=== PATIENT | female | born 1980 | race Hispanic/Latino ===

== ENCOUNTER 2017-02-26 17:30 | Inpatient (IN) | payer MEDICAID ==
[~2017-02-26] VITALS: Ht 158.8 cm; Wt 81.6 kg
[2017-02-26] MEDS ORDERED: Sodium Chloride LOK Flush 10 mL Syringe IVFLUSH PRN (21:20)
[2017-02-26] MEDS ORDERED: Oxytocin 10 Unit/mL Inj IM PRN (21:20)
[2017-02-26] MEDS ORDERED: Oxytocin 30 Units/500 mL LR 30 UNITS in IV Premix 1 EACH IV PRN (21:20)
[2017-02-26] MEDS ORDERED: Carboprost 250 mCg/mL Inj IM PRN (21:20)
[2017-02-26] MEDS ORDERED: Methylergonovine 0.2 mg/mL Inj IM PRN (21:20)
[2017-02-26] MEDS ORDERED: Hemorrhage Kit, Post Partum XX ONE (21:20)
[2017-02-26] MEDS ORDERED: CeFAZolin Inj 2 GM in Dextrose 5%-Pha MIX 50 ML IV ONE (21:35)
[2017-02-26] MEDS: Lactated Ringer's 1,000 ML IV PRN ×2 (21:50→22:53)
--- NOTE | 2017-02-26 21:59 | DRSVH ---
PROCEDURE: US OB FOLLOW UP GROWTH AND BIOPHYSICAL PROFILE AND UMBILICAL DOPPPLER INDICATIONS: IUGR, CORD DOP, WEIGHT OUTSIDE/PRIOR DATING DATA: Last menstrual period (LMP): Not available. LMP-based estimated date of delivery (SHE): None available. First dating scan (date and location): 10/13/2016, at [facility]. Estimated date of delivery (SHE) from first dating scan: 03/16/2017. TECHNIQUE: Real-time scanning was performed of the fetus, with image documentation and biometric measurements. Endovaginal scanning: n.a. COMPARISON: [facility], US, US OB FOLLOW UP GROWTH, 02/11/2017, 10:42. [facility]TagArray Ultrasound, US, US OB REEVAL INCOMP ANATMY LTD, 11/15/2016, 16:17. [facility] Ul trasound, US, US OB>14 WKS ANATOMY COMP, 10/21/2016, 16:36. FINDINGS: General: A single living intrauterine gestation is present. Presentation: Breech Placenta: Placental position is anterior fundal, without previa. Amniotic fluid index: 4.6 cm (less than 3%); normal range is 5-24 cm. heart rate: 156 beats per minute. Maternal cervical canal: 3.6 cm long. Normal lower limit is 2.5 cm. biometrics: Biparietal diameter: 35 weeks 3 days Head circumference: 35 weeks 2 days Abdominal circumference: 35 weeks 1 day Femur length: 35 weeks 5 days Estimated gestational age from initial scan: 35 weeks 3 days. Composite gestational age from present scan: 35 weeks 2 days Estimated weight and percentile: 2541 at 7% Measurement variability for biometric dating: +/- 10 days from 12-20 weeks gestation, +/- 2 weeks fro m 20-30 weeks gestation, +/- 3 weeks for 30 weeks gestation or later. weight reference: 4500 g or EFW >90/95% is considered macrosomia or large for gestational age. EFW <10% is small for gestational age. EFW 5% or less is considered intra-uterine growth restrictio n. Anatomic survey: Neuro: Ventricles are non-dilated at less than 10 mm. Cisterna magna is normal at 3-11 mm. Cerebel lum is normal in size and morphology. Nuchal skin fold: Normal at less than 6 mm between 14-20 weeks gestational age. Face: Nose and lips, facial profile are normal. Spine: No evidence for spina bifida. Heart: 4-chambered heart is present, with normal ventricular outflow tracts. Diaphragm: Diaphragm is intact. Stomach: Left-sided stomach is present. Kidneys: No hydronephrosis. Normal is less than 5 mm in 2nd trimester, less than 7 mm in 3rd trimester. Cord: 3 vessel cord has orthotopic insertion. Bladder: Normal in size. Extremities: All 4 extremities identified. Biophysical profile: Tone: 0 points. Movement: 2 points. Respiration: 2 points. Largest pocket of fluid: 2 points. Umbilical artery Doppler: Normal with preserved diastolic flow IMPRESSION: 1. A single living intrauterine gestation. 2. The weight at the 7th percentile for gestational age. 3. Oligohydramnios with RAJI at less than 3%. 4. BPD 05/01. Dictated by: Gayla Wild M.D. on 02/26/2017 at 21:51 Approved by: Gayla iWld M.D. on 02/26/2017 at 21:57
--- NOTE | 2017-02-26 22:33 | HP ---
[address] [address] HISTORY AND PHYSICAL PATIENT: ODELL CARO : 1980 MR#: [id number] ADMIT: 02/26/2017 JOB ID: [id number] HISTORY OF PRESENT ILLNESS: This is a 36-year-old female. She is 5, para 4, at 37 weeks plus 5 days. She was sent to [facility] by Dr. Green for NST because she had an ultrasound done February 11 that showed her estimated weight was 2%. The NST was done at [facility] and her tracing showed a nonreactive heart tracing. The heart baseline at 150 with most of the time with moderate variability, but no adequate accelerations. Then, BPP and Doppler ultrasound was ordered. This time, the estimated weight was 7% and the RAJI was 4.7 with 2.2 pocket. There was a -2 score with not seeing gross movement. There was breathing movement present. The score for BPP was 6/10 minus NST and gross movement and the Doppler was within normal range. ALLERGIES: This patient has no known drug allergies. PAST MEDICAL HISTORY: She declined other medical problems. She declined a history of surgery. She has been having routine care at [facility] for . It was noticed her GCT was positive at 149 and 3-hour GTT was negative, and there were no other abnormal findings in before the ultrasound noticed IUGR. OBSTETRICAL HISTORY: She had four vaginal deliveries, not complicated. GYNECOLOGIC HISTORY: Not significant. SOCIAL HISTORY: She declined smoking, drinking alcohol or drug usage. FAMILY HISTORY: Not significant. PHYSICAL EXAMINATION: She is afebrile. Her vitals are in normal range. Cardiac: RR, no murmur. Pulmonary: Bilaterally clear. Abdomen: Soft, , nontender uterus. Extremities: Nontender. ASSESSMENT AND PLAN: This is a 36-year-old female, 5, para 4 at 37 weeks plus 5 days. Intrauterine growth retardation at 2% February 21 and 7% today. BPP 6/10 with nonreactive heart tracing but category 1 at this time and breech presentation confirmed by the ultrasound today. Discussed with the patient that at this time she has a breech presentation and IUGR. The plan will be for section. The patient drank fluid at around 7-7:30. Plan is we will keep her heart tracing monitor on overnight. Will get a done in the morning. I also discussed with Dr. Green and she will be present in the morning and be the surgeon for the . The is scheduled at 8:30. I also talked with the patient that if there is heart tracing abnormality overnight, she will need a earlier than 8:00. All questions answered. The patient agreed with the plan. HARRIETT
[2017-02-26 22:58] LABS: Mean Corpuscular Hemoglobin 30.8 pg (27.0-35.0); Mean Corpuscular Volume 87.9 fL (81-100)
[2017-02-27] MEDS ORDERED: Sodium Citrate-Citric Acid 15 mL Solution PO ONE ×2 (06:20→07:25)
[2017-02-27] MEDS ORDERED: fentaNYL-PF 50 mCg/mL 2 mL Inj ONE (08:18)
[2017-02-27] MEDS ORDERED: Morphine PF 1 mg/mL 10 mL Inj ONE (08:19)
--- NOTE | 2017-02-27 09:23 | HP ---
[address] [address] HISTORY AND PHYSICAL PATIENT: ODELL CARO : 1980 MR#: [id number] ADMIT: 02/26/2017 JOB ID: [id number] ADMISSION DIAGNOSIS: IUGR with oligo at term. HISTORY OF PRESENT ILLNESS: The patient is a 36-year-old 5, para 4-0-0-4 at 37 weeks and 6 days gestational age by eight week ultrasound, who was sent from the office yesterday for ultrasound on February 11, 2017 that showed IUGR at 2nd percentile. The patient was sent for surveillance. NST was unreactive. Biophysical profile was ordered. Results were 6/, -2 for nonreactive NST and -2 for tone. RAJI was 4.6 cm and follow up growth showed IUGR 7th percentile, baby's weight was 2541 g, average gestation age 35 weeks and 2 days, a breech presentation and decision was made to proceed with delivery by section for breech presentation. PAST MEDICAL HISTORY: 1. Mild headaches resolved with Tylenol only. 2. Abnormal 1 hour glucose tolerance test with normal 3 hour GTT. PAST SURGICAL HISTORY: Insignificant. OBSTETRICAL HISTORY: In 1999, 40 week ended with spontaneous vaginal delivery in [place]. In 2002, 40 week ended with spontaneous vaginal delivery in [place]. In 2010, a full-term ended with spontaneous vaginal delivery in [place], no complications. In 2012, 40 weeks ended with spontaneous vaginal delivery after induction of labor for oligohydramnios and the current . PAST GYNECOLOGIC HISTORY: No history of abnormal Pap smears. No history of STDs. ALLERGIES: No known drug allergies. MEDICATIONS: vitamins. SOCIAL HISTORY: Denied any alcohol consumption. Denied any drugs of abuse. Denied any cigarette smoking. LABORATORIES: H and H is 11.9 and 35.1. HIV nonreactive. Gonorrhea/ chlamydia cultures negative. Antibody negative. Blood group O positive, hepatitis B surface antigen nonreactive, RPR nonreactive, rubella immune. Urine cultures negative. PHYSICAL EXAMINATION: The patient is alert, oriented x3. Vital signs are 95/55 for blood pressure. Respirations are 18, pulse 76, temperature 36.9 degrees centigrade. Heart is regular rate and rhythm. Positive S1, S2. Lungs clear to auscultation bilaterally. Abdomen: Gravid uterus. Lower extremities without calf tenderness appreciated bilaterally. heart tracing is showing baseline of 145 beats per minute. No accelerations, moderate variability. One variable deceleration, a brian of 115 lasted only 15 seconds at 7:50 a.m. after acoustic stimulation. A second acoustic stimulation did not elicit any accelerations as well. Ultrasound from last night showed estimated weight 2541 g at 7th percentile, average gestational age of 35 weeks and 2 days, breech presentation, RAJI of 4.6 cm and a biophysical profile is 6/10, -2 for nonreactive NST, and -2 for tone. Bedside ultrasound before proceeding with a confirmed breech presentation as well. ASSESSMENT AND PLAN: The patient is a 36-year-old, 5, para 4-0-0-4 at 37 weeks 6 days gestational age by eight week ultrasound, with IUGR 7th percentile, RAJI of 4.6 cm, oligohydramnios, biophysical profile 6/10 and breech presentation. Decision was made to proceed with a primary after consulting with Dr. aLke through [employer]. Patient counseled in details; she agreed to proceed with the plan. 1- Will proceed with a primary , a consent signed. All questions answered. 2- Preoperative antibiotic prophylaxis. 3- SCDs for DVT prophylaxis. All questions answered. HARRIETT
--- NOTE | 2017-02-27 11:30 | PCM.HPANE ---
Patient Data Date of Service: Feb 27, 2017 Surgeon Admitting Provider:Odell Green MD Attending Provider:Odell Green MD Primary Care Physician:Helio Bacon MD Other Provider:Ronnie Steward Anesthesia Reason for Visit NST LABOR Ht/WT & BMI Body Mass Index Allergies Coded Allergies: No Known Allergies (Unverified Allergy, Unknown, 02/26/17) Diabetes History Hx Diabetes?: No MRSA MRSA: No Medications Hypertension Medication: No History History of ENT Problems?: No Hx of Heart Problems?: No Hx of Respiratory Problem?: No Hx Neurologic Problems?: No Hx of GI Problems?: No Hx of Problems?: No HX of Peritoneal Dialysis: No Hx Surgeries?: No Hx Substance Use: No Smoking Status: Never Smoker Have You Smoked inLast 12 mo: No Stop/Bang Treated for Sleep Apnea?: No Do You Have a CPAP Machine?: No S-Snoring: Do You Snore Loudly: No T-Tired: feel tired, fatigued: No O-Obsered: Observed not breath: No P-Blood Pressure: treated: No WINSTON Risk Assessment: Low Risk, <3 Yes Risk Assessment Category Category 1A: Patient has history of documented sleep apnea, and HAS NOT received any narcotic, sedative or anesthesia administration during this stay. Category 1B: Patient has history of documented sleep apnea, and HAS received any narcotic , sedative or anesthesia administration during this stay Category 2: Patient has SUSPECTED Obstructive Sleep Apnea, and HAS received any narcotic , sedative or anesthesia administration during this stay. Category 3: Patient has SUSPECTED Obstructive Sleep Apnea and HAS NOT received narcotic, sedative or anesthesia administration during this stay. Category 4: Outpatient in Procedural Areas with known sleep apnea or who screen positive for High Risk via the STOP/BANG questionnaire. Exam Exam General Appearance: Alert, Oriented X3, Cooperative, No Acute Distress HEENT/AIRWAY: MP 3 Lungs: Clear to Auscultation, Normal Air Movement Heart: Exam Unremarkable, Regular Rate/Rhythm, No Murmurs/Rubs/Gallops Additional Information Gravid Abdomen Meds/Labs/Diagnostics Admission Meds Current Medications Cefazolin Sodium/ Dextrose/Water (Ancef Inj/D5W Pharmacy To Mix) 50 ml @ 100 mls/hr ONCE ONCE IV Last administered on 02/27/17t 08:17; Start 02/26/17 at 21: 35; Stop 02/26/17 at 22:04; Status DC Citric Acid/ Sodium Citrate (Bicitra) 30 ml ONCE ONCE PO Last administered on 02/27/17t 08:17; Start 02/27/17 at 06:20; Stop 02/27/17 at 06:28; Status DC Labs Test 02/26/17 21:35 White Blood Count 12.3th/mm3 (3.8-10.1) Red Blood Count 4.71mil/mm3 (3.90-5.20) Hemoglobin 14.5g/dL (12.0-15.6) Hematocrit 41.4% (35.0-46.0) Mean Corpuscular Volume 87.9fL (81-100) Mean Corpuscular Hemoglobin 30.8pg (27.0-35.0) Mean Corpuscular Hemoglobin Concent 35.0% (32.0-37.0) Red Cell Distribution Width 11.6% (12.3-15.4) Platelet Count 245bil/L (150-400) Plan Impression Patient chart reviewed, patient interviewed and anesthestic plan with risks, benefits, and alternatives discussed, and informed consent obtained. ASA Physical Status: ASA2 Plus Emergency (nonreassuring FHT, Oliohydramnios, IUGR) Anesthetic Plan: SAB Bene/Risks/Altern/Consents: Yes HP Complete Prior to Induction: No (Notified of C/S need prior to opportunity to chart H&P documentaiton added following urgent patient care.) Alejandro Morales DO Feb 27, 2017 11:30
[2017-02-27] MEDS ORDERED: Lactated Ringer's 1,000 ML IV PRN (11:31)
[2017-02-27] MEDS ORDERED: fentaNYL-PF 50 mCg/mL 2 mL Inj IVPUSH PRN (11:35)
[2017-02-27] MEDS ORDERED: Dexamethasone 4 mg/mL Inj IVPUSH PRN (11:35)
[2017-02-27] MEDS ORDERED: EPHEDrine Sulfate 50 mg/mL Inj IVPUSH PRN (11:35)
[2017-02-27] MEDS ORDERED: Atropine 0.4 mg/mL Inj IV PRN (11:35)
[2017-02-27] MEDS ORDERED: Ondansetron 2 mg/mL 2 mL Inj IVPUSH PRN (11:35)
--- NOTE | 2017-02-27 11:40 | PCM.ANEP1 ---
Post Anesthesia Phase 1 PACU Phase 1 Assessment Date of Service: Feb 27, 2017 Anesthetic Administered: SAB Level of Alertness: Awake, talking GREER's with Equal Strength: No (c/w sensorimotor block) Pain: No Pain Scale Score: 0 Nausea or Vomiting: No Oxygen Delivery: Room Air Lungs: Clear to Auscultation, Normal Air Movement Dermatome Level: T10 (Umbilicus) Alejandro Morales DO Feb 27, 2017 11:40
--- NOTE | 2017-02-27 11:59 | PCM.ANEP2 ---
Post Anesthesia Evaluation ASA/CMS Post Anesthesia VS in Patient's Normal Range?: No (Addressing with 25mg IM ephedrine) Resp Stable; Airway Patent?: Yes CV Function & Hydration Stable: Yes Mental Status Recovered?: Yes Pain control Satisfactory?: Yes N/V Control Satisfactory?: Yes Alejandro Morales DO Feb 27, 2017 11:59
[2017-02-27] MEDS ORDERED: EPHEDrine Sulfate 50 mg/mL Inj IM ONE (12:00)
[2017-02-27] MEDS: Lactated Ringer's 1,000 ML IV SCH ×2 (12:11→20:11)
[2017-02-27] MEDS ORDERED: Oxytocin 30 Units/500 mL LR 30 UNITS in IV Premix 1 EACH IV PRN (12:15)
[2017-02-27] MEDS ORDERED: Carboprost 250 mCg/mL Inj IM PRN (12:15)
[2017-02-27] MEDS ORDERED: oxyCODONE-Acetamin 5-325 mg Tablet PO PRN (12:15)
[2017-02-27] MEDS ORDERED: Methylergonovine 0.2 mg/mL Inj IM PRN (12:15)
[2017-02-27] MEDS ORDERED: Hemorrhage Kit, Post Partum XX ONE (12:15)
[2017-02-27] MEDS ORDERED: hydrOXYzine Pamoate 25 mg Capsule PO PRN (12:15)
[2017-02-27] MEDS ORDERED: Sodium Chloride LOK Flush 10 mL Syringe IVFLUSH PRN (12:15)
[2017-02-27] MEDS ORDERED: LANOlin HPA 7 Gm Ointment TOPICAL PRN (12:15)
[2017-02-27] MEDS ORDERED: Oxytocin 10 Unit/mL Inj IM PRN (12:15)
--- NOTE | 2017-02-28 01:58 | OP ---
[address] [address] OPERATIVE REPORT PATIENT: ODELL CARO : 1980 MR#: [id number] ADMIT: 02/26/2017 JOB ID: [id number] DATE OF SURGERY: 02/26/2017 PREOPERATIVE DIAGNOSIS(ES): A 36-year-old, 5, para 4-0-0-4 at 37 weeks' 6 days' gestational age with complicated with the followin. Intrauterine growth restriction: Last ultrasound is at 7th percentile yesterday. 2. Biophysical profile: 05/03, -2 for tone, -2 for nonreactive NST. 3. Oligohydramnios with amniotic fluid index (RAJI) of 4.6 cm. 4. Breech presentation. 5. Advanced maternal age. 6. Body mass index 31. The patient opted to proceed with a primary section. POSTOPERATIVE DIAGNOSIS(ES): A 36-year-old, 5, para 4-0-0-4 at 37 weeks' 6 days' gestational age with complicated with the followin. Intrauterine growth restriction: Last ultrasound is at 7th percentile yesterday, but baby's actual weight is less than the 5th percentile. 2. Biophysical profile: 05/03, -2 for tone, -2 for nonreactive NST. 3. Oligohydramnios with amniotic fluid index (RAJI) of 4.6 cm. 4. Breech presentation. 5. Advanced maternal age. 6. Body mass index 31. The patient opted to proceed with a primary section. PROCEDURE: Primary low transverse . SURGEON: Odell Green MD [employer]: ANESTHESIA: Spinal. ESTIMATED BLOOD LOSS: 600 cc. INTRAVENOUS FLUIDS: 900 cc of crystalloid. URINE OUTPUT: 400 cc of clear urine. COMPLICATIONS: None. PACKS: None. DRAINS: None. CATHETERS: Tam catheter in place. SPECIMENS REMOVED: Placenta sent to pathology for IUGR and oligohydramnios. FINDINGS: 1. Polycystic ovaries bilaterally. Normal fallopian tubes bilaterally. 2. Rajan breech presentation in left sacral transverse position. 3. Single viable female with Apgars 8 and 9, weight of 2009 gm, less than the 5th percentile for 37 weeks' gestational age. 4. Delayed cord clamping allowed for 60 seconds. CONSENT: Procedure, risks, benefits, and alternatives of the procedure discussed with the patient. Informed consent signed. PROCEDURE IN DETAIL: Patient went to the OR with IV running. After spinal anesthesia was found to be adequate, the patient was prepped and draped in the normal sterile fashion with vaginal prepping and abdominal prepping as well. Tam catheter inserted. Patient placed in dorsal supine position with a leftward tilt. Pfannenstiel skin incision was made with a scalpel 2 cm above symphysis pubis and carried down to underlying rectus fascia with the scalpel. Fascial incision extended bilaterally with Leyva scissors. Inferior aspect of fascial incision was grasped with Tarun clamps, elevated, tented up, and rectus muscles dissected off bluntly. Attention was then turned to the superior aspect of fascial incision, which in a similar fashion was grasped with Tarun clamps, elevated, tented up. Rectus muscle dissected off bluntly and sharply. Rectus muscles were then in the midline. Peritoneum identified, entered bluntly with traction, counter traction. Upon good visualization of the bladder , peritoneal incision extended superiorly and inferiorly. Bladder blade inserted. Vesico-uterine peritoneum identified, entered sharply with Metzenbaum scissors. Bladder flap created digitally. Bladder blade re-inserted. Uterus incised in the midline with scalpel. Uterine incision extended bilaterally with bandage scissors. membranes ruptured. Rajan breech presentation in left sacral transverse position. Sacrum was delivered through the incision after rupture of membranes with clear fluid obtained. The baby's trunk delivered. With rotational movements, both upper extremities were delivered. Then, the head was delivered smoothly without any maneuvers. Delayed cord clamping allowed for 60 seconds. Cord clamped and cut. Infant handed off to awaiting clinical review nurse. Placenta followed spontaneously. The uterus exteriorized, cleared of all clots and debris. The uterine incision repaired in two layers, first a continuous locked fashion of 0-Vicryl suture, second imbrication layer with 0-Vicryl suture. Good hemostasis was assured. Suction irrigation confirmed hemostasis. Uterus returned back to the abdomen. A few extra [id number] of 2-0 chromic were added to confirm hemostasis at the level of the hysterotomy repair. All instruments were removed from the patient's abdomen. Muscle approximated in the midline with interrupted sutures of 2-0 chromic. Fascia closed in a continuous fashion of 0-Vicryl suture. The skin closed in a subcuticular fashion with 4-0 Vicryl suture. Pressure dressing applied. Patient tolerated the procedure well. Sponge, lap, needle, and instrument counts were correct times two. The patient was recovering in a stable condition. Dr. Green was present and scrubbed for the entire procedure. HARRIETT
[2017-02-28] MEDS: Lactated Ringer's 1,000 ML IV SCH ×3 (04:11→20:11)
[2017-02-28 06:16] LABS: Mean Corpuscular Hemoglobin 31.2 pg (27.0-35.0); Mean Corpuscular Volume 91.1 fL (81-100)
[2017-02-28] MEDS: Ascorbic Acid 500 mg Tablet PO SCH ×2 (08:19→20:23)
--- NOTE | 2017-02-28 08:36 | PCM.PNOBPP ---
Subjective Date of Service Feb 28, 2017 Post : Primary Ceserean Delivery Lochia: Normal Pain Management: PO pain meds Gastrointestinal: Good Appetite, No N/V Postop Activity: Ambulating in Room Only, Other (voiding without difficulty. ) Labs Laboratory Tests 02/28/17 05:45: White Blood Count 8.5, Red Blood Count 3.14, Hemoglobin 9.8, Hematocrit 28.6, Mean Corpuscular Volume 91.1, Mean Corpuscular Hemoglobin 31.2, Mean Corpuscular Hemoglobin Concent 34.3, Red Cell Distribution Width 11.5, Platelet Count 173 Exam Vital Signs Vital Signs BP 78/48 Pulse 87 RR 17 T 36.7 O2Sat 97% on RA Vital Signs: VS reviewed, stable Exam Abdomen: Fundus firm Lungs: Clear to Auscultation Heart: Regular Rate/Rhythm, Normal S1, Normal S2 General: Alert, Oriented X3 Surgical Wound : Incision General Appearence: Steri Strips, Sutures, Intact, Well Approximated, Incision Healing, No Erythemia, No Discharge OB Post Assessment/Plan Assessment A 36-year-old, 5, now para 5-0-0-5 1. POD#1 S/P Primary section for Intrauterine growth restriction, Oligohydramnios and Breech presentation. 2. Postoperative Anemia. 3. Advanced maternal age. 4. Body mass index 31. Post plan: Other (Continue post operative care. Anticipate discharge home tomorrow. ) Helio Bacon MD Feb 28, 2017 08:36
[2017-02-28] MEDS ORDERED: Hepatitis-B (Adult) Vaccine 20 mCg/1 mL Inj IM ONE (13:35)
[2017-03-01] MEDS: Ascorbic Acid 500 mg Tablet PO SCH (07:49)
--- NOTE | 2017-03-01 13:53 | PCM.DIOB ---
Obstetrical Disch Instruction Date of Service: Mar 01, 2017 Dates of Hospitalization Date of Hospital Admission Feb 26, 2017 at 20:50 Providers Admitting Physician: Odell Green MD Primary Care Physician: Helio Bacon MD Attending Physician: Odell Green MD Discharge Diagnosis Discharge Diagnosis POD#2 S/P PLTCS, SGA, anemia Problems: Diet Discharge Diet: No restrictions Activity Discharge Activity-General: Pelvic Rest for 6 weeks, No lifting >10 pounds for 4-6 weeks Dressing and Incisional Care Dressing Care: Keep dressing clean, dry & intact Hygiene: May shower Follow Up Plan Follow-up Provider (F9): Odell Green MD Follow-up appointment: Weeks (2) Call your provider for: Fever or Chills, Shortness of breath, Heavy vaginal bleeding, Other (excessive pain not controlled with pain medications, abnormal wound discharge.) Odell Green MD Mar 01, 2017 13:53
[2017-03-01] MEDS ORDERED: OXYC1TAB24 PO (13:56)
[2017-03-01] MEDS ORDERED: FERR-74 PO (13:56)
[2017-03-01] MEDS ORDERED: Ascorbic Acid PO (13:56)
[2017-03-01] MEDS ORDERED: IBUP-1827 PO (13:56)
[2017-03-01] MEDS ORDERED: DOCU-41 PO (13:56)
[2017-03-01 14:45] VITALS: BP 115/69; PULSE 88; RESP 17
--- NOTE | 2017-03-01 15:55 | DIS ---
[address] [address] DISCHARGE SUMMARY PATIENT: ODELL CARO : 1980 MR#: [id number] ADMIT: 02/26/2017 JOB ID: [id number] DIS: 03/01/2017 HISTORY: Admitted at 37 weeks and 5 days gestational age by eight-week ultrasound for IUGR and oligohydramnios. Discharged on March 01, 2017. DISCHARGE DIAGNOSIS: Postoperative day number two, status post primary low transverse section for breech presentation, intrauterine growth retardation, and oligohydramnios. HOSPITAL COURSE: For further details, please refer to the fully dictated notes. On the day of discharge, the patient had no complaints, voiding, ambulating, tolerating p.o. intake. with no difficulties. OBJECTIVE: Vital signs are 115/69 for blood pressure. Respirations are 16. Pulse is 88, temperature 37.0 degrees centigrade. Heart is regular rate and rhythm. Positive S1, S2. Lungs clear to auscultation bilaterally. Abdomen firm. Uterine fundus palpated at the level of the umbilicus. Actually 2 cm below the level of the umbilicus. Nontender. Positive bowel sounds. Incision is clean, dry, and intact with Steri-Strips in place. Appropriate tenderness around the incision. Lower extremities: No calf tenderness appreciated bilaterally. Perineum: No active bleeding. H and H on postop day number one is 9.8 and 28.6. Platelets are 173. White blood count is 8.5. DISCHARGE PLAN: The patient will be discharged home in stable condition. Will follow up with Dr. Green in the office in two weeks. Instructed to have nothing in the vagina for six weeks. No heavy lifting more than baby's weight. Instructed to call for fever, chills, severe abdominal pain uncontrolled with pain medication, heavy vaginal bleeding, abnormal wound discharge or any other concerning symptoms. DISCHARGE MEDICATIONS: 1. Percocet 5/325 every 4 hours as needed for severe pain. 2. Ibuprofen 600 mg every 6 hours for moderate pain. 3. Colace 100 mg twice daily. 4. Ferrous sulfate 325 mg twice daily. 5. Vitamin C 500 mg twice daily. 6. vitamins once daily. The patient understood her discharge instructions. She will comply with her discharge plan. HARRIETT
--- NOTE | 2017-03-03 13:17 | PATH ---
SURGICAL PATHOLOGY Attending Physician:Odell Green MD CASE STATUS: Signed Out PATIENT NAME: ODELL CARO PID: [id number] : 1980 DATE COLLECTED:02/26/2017 00:00 SPECIMEN: Placenta CLINICAL HISTORY: INTRAUTERINE GROWTH RESTRICTION, BREECH, 37.6 WEEKS 1). PLACENTA FOR IUGR AND OLIGOHYDRAMNIOS FINAL DIAGNOSIS: Placenta with Umbilical Cord and Membranes: 1. Placenta: 420 grams, which is approximately the 35th percentile for 37.6 weeks gestation. Marked vascular congestion but negative for evidence of significant infarction. Negative for significant inflammation. 2. membranes: Ruptured 2.8 cm from the free placental edge. Negative for significant inflammation. 3. Umbilical cord: 12.7 cm in length with three normal blood vessels. Negative for significant inflammation. Furcate insertion at the placental edge. ICD10 O41.01X0 GROSS DESCRIPTION: The specimen is received in formalin, labeled with the patient's name and consists of an intact placenta and includes placental disc (420 g, 12.5 x 13.5 x 3.9 cm), umbilical cord (length-12.7 cm, diameter-1.3 x 0.7 cm) and membranes. The membranes are ruptured 2.8 cm from the free edge of the placenta and are semi-translucent. The umbilical cord has a furcate insertion at the edge of the placenta and contains 3 vessels. The surface is bosselated with dilated vessels. No evidence of meconium is identified. The maternal surface is dark maroon with normal cotyledon formation. The placental disc is spongy with no hematomas, infarcts, nodules, masses, or lesions identified. Section code: (A) edge of placenta with membranes, umbilical cord; (B, C-D, E-F, G) placenta, 4 full thickness sections. 02/28/17 ICD-9 CODES: CPT CODES: 1: 73232 Electronically Signed Out Bandar Reyna MD [facility] Pathology [facility] [address], [place] [address] Technical component performed at [facility], [facility] [address], [place], [address]
== END 2017-03-01 15:00 | disposition home or self-care (01) | DRG 540 ==
LOC: FBCO 17:30 → FBC 20:50
PROVIDERS: ADMIT Obstetrics & Gynecology; ATTEND Obstetrics & Gynecology
PROC: 10D00Z1 Extraction of Products of Conception, Low, Open Approach (ICD-10-PCS; principal; 2017-02-27 08:15)
DX: O32.1XX0 Maternal care for breech presentation, not applicable or unspecified (principal); O41.03X0 Oligohydramnios, third trimester, not applicable or unspecified; O36.5930 Maternal care for other known or suspected poor fetal growth, third trimester, not applicable or unspecified; Z3A.36 36 weeks gestation of pregnancy; Z37.0 Single live birth

== ENCOUNTER 2017-05-20 17:26 | Emergency (ER) | payer MEDICAID ==
[~2017-05-20] VITALS: Ht 157.5 cm; Wt 70.5 kg
[~2017-05-20 17:26] MED LIST: Ascorbic Acid PO; DOCU-41 PO; FERR-74 PO; IBUP-1827 PO; OXYC1TAB24 PO
[2017-05-20 17:29] VITALS: BP 107/70; PULSE 72; RESP 15; O2SAT 100
--- NOTE | 2017-05-20 18:17 | DRSVH ---
PROCEDURE: X-RAY LEFT WRIST COMPLETE, MINIMUM THREE VIEWS ([id number]) INDICATIONS: left wrist pain after GROUND LEVEL FALL TECHNIQUE: 4 views of the wrist were acquired. COMPARISON: None. FINDINGS: Bones: There is cortical irregularity along the radial styloid suggesting minimally displaced fractur e. Scaphoid view: The scaphoid is intact. Soft tissues: There is elevation of the pronator fat-pad suggesting joint effusion. IMPRESSION: Findings suspicious for minimally displaced radial styloid fracture. Dictated by: Nat Lombardi M.D. on 05/20/2017 at 18:14 Approved by: Nat Lombardi M.D. on 05/20/2017 at 18:15
--- NOTE | 2017-05-20 18:24 | ED.REPORT ---
HPI-Extremity Problem Upper Date of Service May 20, 2017 ED Provider: Josue Reddy PA-C Jovana is otherwise healthy 36 chief complaint left wrist pain. Patient states the pain began when she tripped and fell while mopping on her outstretched left hand. Nursing Notes Stated Complaint: HAND Chief Complaint: Extremity Trauma Nursing Notes Reviewed: Yes Allergies: Coded Allergies: No Known Allergies (Unverified , 05/20/17) General Time Seen by MD: 18:13 Chief Complaint Wrist injury left Physical Exam Initial Vital Signs Vital Signs (First) Date Time Temp Pulse Resp B/P Pulse Ox O2 Delivery O2 Flow Rate FiO2 05/20/17 17:29 36.8 72 15 107/70 100 Room Air Interpretation & Diagnostics X-Ray Interpretation Xray Interpretation: PROCEDURE: X-RAY LEFT WRIST COMPLETE, MINIMUM THREE VIEWS ([id number]) INDICATIONS: left wrist pain after GROUND LEVEL FALL IMPRESSION: Findings suspicious for minimally displaced radial styloid fracture. Discharge & Departure Impression: Primary Impression: Closed fracture of radial styloid Encounter type: initial encounter Fracture alignment: displaced Laterality : left Qualified Code: S52.512A - Displaced fracture of left radial styloid process, initial encounter for closed fracture Disposition: Home Discharge Condition All VS Reviewed: Yes Condition: Stable Patient Instructions: Splint Care (ED) Additional Instructions: Evaluation for left arm pain and emergency department visit history, physical examination and x-rays which show that you have a fracture to your left radius. This will need to be seen by an orthopedic surgeon. I have given her referral to see Dr. Wilfred Mendez. Please contact her office to arrange follow-up. We have placed the arm in a splint. Please leave the splint on and dry until you are seen by Dr. Mendez. The pain is best treated with 500 mg naproxen (Aleve) every 12 hours, or 1000 mg of acetaminophen (Tylenol) every 6 hours. These drugs can be taken at the same time for more severe pain. I will write a prescription for a small amount of oxycodone to be taken every 4- 6 hours for pain not controlled by these other medications. Please do not drive or drink alcohol within 4 hours of taking this medication. Return to the emergency department for any new or worsening symptoms including increasing pain or a cold/numb hand. Google translate: La siguiente es ramya traduccin realizada por Google translate. Por favor, disculpe Kasts incmodas y confusas. Por favor, pregunte si tiene preguntas. Evaluacin para el dolor en el brazo veronique y la historia de visitas al departamento de emergencias, el examen fsico y las radiografas que muestran que usted tiene ramya fractura a prieto radio veronique. Lovilia necesitar ser visto por un cirujano ortopdico. Le he dado referencias para sarita al Dr. Wilfred Mendez. Comunquese con prieto oficina para organizar el seguimiento. Hemos colocado el brazo en ramya frula. Por favor, deje la frula y seque hasta que sea visto por el Dr. Mendez. El dolor se trata mejor con 500 mg de naproxeno (Aleve) cada 12 horas, o 1000 mg de acetaminofeno (Tylenol) cada 6 horas. Estos medicamentos pueden tomarse al mismo tiempo para un dolor ms erik. Escribir ramya receta para ramya pequea cantidad de oxicodona que se marichuy cada 4 -6 horas para el dolor no controlado por estos otros medicamentos. No conduzca ni ayan alcohol en un plazo de 4 horas despus de marichuy deonte medicamento. Vuelva al departamento de emergencias para cualquier nuevo o empeoramiento de los sntomas incluyendo dolor creciente o mano fra / entumecida. Referrals: Wilfred Mendez MD EDSupervising Provider for APC: Justin Dan DO copies to: Wilfred Mendez MD, Seth PA-C May 20, 2017 18:24
[2017-05-20] MEDS ORDERED: OXYC5TAB72 PO (19:04)
[2017-05-20] MEDS ORDERED: ACET-171 PO (19:04)
[2017-05-20] MEDS ORDERED: NPR500T PO (19:04)
[2017-05-20 20:27] VITALS: BP 118/70; PULSE 78; RESP 14; O2SAT 98
== END 2017-05-20 20:20 | disposition home or self-care (01) ==
LOC: EDUNIT# 17:26 → SED 17:26
DX: S52.512A Displaced fracture of left radial styloid process, initial encounter for closed fracture (principal); W01.0XXA Fall on same level from slipping, tripping and stumbling without subsequent striking against object, initial encounter; Y93.E5 Activity, floor mopping and cleaning; Y92.098 Other place in other non-institutional residence as the place of occurrence of the external cause; Y99.8 Other external cause status
CPT/HCPCS: 29125; 73110; 96372; 99284; J1885